=== PATIENT | male | born 1940 | race Hispanic/Latino ===

== ENCOUNTER 2020-04-03 09:07 | Day surgery (SDC) | payer OTHER ==
[~2020-04-03] VITALS: Ht 167.6 cm; Wt 71.9 kg
[2020-04-03] VITALS (16 sets, daily range): BP systolic 134–164; BP diastolic 64–78
[2020-04-03] MEDS: CEFTRIAXONE SODIUM 1 GM IVP SCH ×2 (06:00→12:20)
[~2020-04-03 09:07] MED LIST: AEC81 PO; LEVO500T89 PO
[2020-04-03] MEDS ORDERED: LACTATED RINGERS 1000ML 1,000 ML IV ONE (09:31)
[2020-04-03 10:07] LABS: BASOPHILS % (AUTO) 0.5 % (0.0-5.0); EOSINOPHILS % (AUTO) 3.2 % (0.0-8.0); HEMATOCRIT 33.6 % (36-48); MEAN CORPUSCULAR HEMOGLOBIN 24.5 pg (27.0-33.0); MEAN CORPUSCULAR HGB CONC 30.7 g/dL (32.0-36.0); MEAN CORPUSCULAR VOLUME 79.8 fL (79-99); MONOCYTES % (AUTO) 6.3 % (3.0-13.0); NEUTROPHILS % (AUTO) 76.7 % (40.0-77.0); PLATELET COUNT (AUTO) 253 K/uL (130-400); RED BLOOD CELL COUNT(AUTO) 4.21 MIL/uL (4.00-5.50); WHITE BLOOD COUNT (AUTO) 6.2 K/uL (4.8-10.8)
[2020-04-03] MEDS: GENTAMICIN 80 MG/NS 100 ML PB 100 ML IV SCH ×2 (10:33→10:34)
[2020-04-03] MEDS ORDERED: PROPOFOL 10 MG/ML 20ML VIAL IV ONE (10:49)
[2020-04-03] MEDS ORDERED: FENTANYL CITRATE PF 50 MCG/1 ML 2ML VIAL ONE (10:50)
[2020-04-03] MEDS ORDERED: MIDAZOLAM HCL 1 MG/ML 2ML VIAL ONE (10:50)
[2020-04-03] MEDS ORDERED: ROCURONIUM 10MG/1ML SYR 10 MG/ML ML ONE (10:51)
[2020-04-03] MEDS ORDERED: ATOR20TA65 PO (11:10)
[2020-04-03] MEDS ORDERED: LISI10TA7 PO (11:10)
[2020-04-03] MEDS ORDERED: TAMS-1 PO (11:10)
[2020-04-03] MEDS ORDERED: AMLO-257 PO (11:10)
[2020-04-03] MEDS ORDERED: ASPI-1026 PO (11:10)
[2020-04-03] MEDS ORDERED: DEXAMETHASONE SOD PHOSPHATE 10MG/ML 1ML VIAL ONE (11:21)
[2020-04-03] MEDS ORDERED: ONDANSETRON HCL 4 MG/2 ML VIAL ONE (11:21)
[2020-04-03] MEDS ORDERED: LIDOCAINE PF 2% 5ML ABBOJECT ONE (13:01)
== END 2020-04-03 15:30 | disposition home or self-care (01) ==
LOC: DAH 09:07 → EDSEX 09:07 → DAH 15:30
PROVIDERS: ATTEND Urology
DX: N40.1 Benign prostatic hyperplasia with lower urinary tract symptoms (principal); R31.0 Gross hematuria; R97.20 Elevated prostate specific antigen [PSA]; I10 Essential (primary) hypertension; E78.5 Hyperlipidemia, unspecified; E11.9 Type 2 diabetes mellitus without complications; Z85.038 Personal history of other malignant neoplasm of large intestine; Z79.899 Other long term (current) drug therapy
CPT/HCPCS: 36415; 55700; 76942; 85025; 87426; A4215 ×2; A4221; A4222; A4223; A4358; A4600; A4663; A6260; C1769; J0696; J1100; J1580; J2001; J2250; J2405; J2704; J3010; J7120 ×2; 93005